=== PATIENT | male | born 2000 | race Hispanic/Latino ===

== ENCOUNTER 2023-11-01 20:32 | Emergency (ER) | payer SELFPAY ==
[2023-11-01 20:34] VITALS: BP 166/88
--- NOTE | 2023-11-01 21:31 | ED.GENMED ---
History of Present Illness
General
Chief Complaint: Heart Rate Problem
Source: patient
Exam Limitations: none
Time Seen by Provider: 11/01/23 21:06
Travel History
Have you had any contact with someone who has COVID-19?: No
Do you have any symptoms of coronavirus? Fever > 100 degrees, chills, cough, shortness of breath, sore throat, loss of taste or smell, muscle aches, or headache?: No
History of Present Illness
History of Present Illness:
This is a 22 year old male that comes in with c/o of his heart racing. States that he was at work and he works on the [employer]. States that his heart just started to race fast. States that he gets cold and then sweats. States that this happened last
week and he went to [facility] in [place]. States that they gave him medication but he didn't take this as he felt it made it worse. State that this fast heart rate happened today at 3pm, 7pm and 8pm. States that it only last about 1 min. States
that he feels SOB and has some chest discomfort. Denies any fever, chills, abd pain, nausea, vomiting, diarrhea, headache, dizziness, urinary burning.
Past History
Past History
ED Past Medical History: None
ED Past Surgical History: None
Social History
Tobacco: Non-smoker
Alcohol: None
Personal:
Living: alone
Employment: Employed
Review of Systems
Review of Systems
All Other Systems: ROS reviewed and negative except as documented in HPI and ROS
Constitutional: Reports no symptoms; Denies fever or chills
EENT: Reports no symptoms
Respiratory: Reports trouble breathing; Denies cough
Cardiac: Reports chest pain (Fast heart rate)
ABD/GI: Reports no symptoms; Denies abdominal pain, nausea, vomiting or diarrhea
: Denies dysuria, frequency or urgency
Musculoskeletal: Reports no symptoms
Skin: Reports no symptoms
Neurological: Reports no symptoms; Denies dizzy or headache
Psychiatric: Reports no symptoms
Phy Exam
General Physical Exam
General Presentation: well appearing and no apparent distress
General age: appears stated age
General Skin: warm
General Habitus: normal
General Mental: alert
General Hydration: appears well hydrated
ENT Exam
ENT Exam: TM's normal, pharynx normal and neck supple
Eye Exam
Eye Exam: EOMI
Cardiovascular Exam
Cardiovascular Exam: regular rate/rhythm, no edema, no murmur and normal peripheral pulses
Pulmonary Exam
Pulmonary Exam: lungs clear, no respiratory distress, no rales, chest non tender, no crackles, no rhonchi, no wheezing and no cough
Gastrointestinal Exam
Gastrointestinal Exam: normal bowel sounds, non tender, soft, no organomegaly, no pulsatile mass and non distended
Musculoskeletal Exam
Musculoskeletal Exam: full ROM and no edema
Skin Exam
Skin Exam: normal color, warm/dry, no rash and no petechia
Psychiatric Exam
Psychiatric Exam: normal mood/affect
Course
Orders/Labs/Results
Orders:
Orders
11/01/23 20:37
Electrocardiogram (*1) Urgent
Reason for Study: Tachycardia
11/01/23 20:38
EKG- Treatment ONCE
11/01/23 21:31
0.9% Sodium Chloride 500 ml [Nss] 500 ml IV BOLUS
11/01/23 21:54
Complete Blood Count/With Diff Urgent
Comprehensive Metabolic Panel Urgent
TSH Reflex To Free T4 Urgent
Troponin I Urgent
Abnormal Lab Results
11/01/23
21:54
WBC 11.6 H 10^3/uL
(4.8-10.8)
MPV 10.6 H fL
(7.4-10.4)
Abs Immat Gran (auto) 0.1 H 10^3/uL
(0-0.05)
Absolute Neuts (auto) 9.5 H 10^3/uL
(1.4-6.5)
Immature Gran % 0.7 H %
(0-0.5)
Neutrophils % 82.1 H %
(42.2-75.2)
Lymphocytes % 12.2 L %
(20.5-51.1)
BUN 25 H mg/dl
(9-20)
Glucose 103 H mg/dl
(70-99)
11/01/23 21:54
11/01/23 21:54
WBC slightly elevated. Dehydration. Glucose nonfasting. Troponin 0012, TSH 0.99
Vital Signs
Initial and Last Documented VS:
Initial Vital Signs
Temp Pulse BP Pulse Ox
97.8 F 88 166/88 98
11/01/23 20:34 11/01/23 20:34 11/01/23 20:34 11/01/23 20:34
Last Documented Vital Signs
Temp Pulse BP Pulse Ox
97.8 F 88 166/88 97
11/01/23 20:34 11/01/23 20:34 11/01/23 20:34 11/01/23 21:55
MDM/Problems Addressed
Differential Diagnosis Includes:
Tachycardia, Dehydration, arrhythmia
MDM/Problems Addressed:
This is a 22 year old male that comes in with c/o his heart beating fast. State that this has happened several times today and only last about 1 min. States that it also happened last week and he was seen in [facility] in [place].
Will check labs and ECG.
Back into see patient. Explained that his heart rate has been regular and around 78. Patient Troponin is normal along with his TSH. Explained that he was dehydrated and encouraged patient to increase his water intake to 8-8oz glasses dally. Patient
to follow up with the family doctor. Return with any concerns
Chronic conditions affecting care:
NA
Acute Exacerbation and/or Progression of Chronic Illness:
NA
*Pulse Oximetry
Patient hypoxic: no
*EKG
Interpreted by ED Provider?: Yes
Heart Rate: 83
Rate: normal
Rhythm: sinus
Mobridge: normal axis
Interval: normal interval
QRS Pattern: normal QRS
Ischemia: no ischemia
*[facility] Interpretation
Rate: normal
Heart Rate: 84
Rhythm: sinus
*Critical Care Note
Total Time (30-74mins, 75-104mins- exclusive of procedures): Not Applicable
ED Attending Note
-
Portions of this chart may have been created with voice recognition software.� Occasional wrong word or��sound alike� substitutions may have occurred due to the inherent limitations of voice recognition software.
Discharge Plan
Departure
Patient Disposition: Home (Routine Discharge)
Date of Disposition: 11/01/23
Time of Disposition: 23:04
Patient with high blood pressure during this ER visit?: Yes
Condition: Good
Covid-19: Not Applicable
Discharge Problem:
Feeling of fast heart rate
Instructions: Tachycardia (DC), BLOOD PRESSURE
Referrals:
NONE,* [Family Provider] -
Activity Restrictions/Additional Instructions:
As discussed, your blood work shows that you are dehydrated. Please increase your water intake to 8-8oz glasses daily. Please stay away from Soda with Caffeine or coffee as this will increase your heart rate. Follow up with the family doctor for
recheck. IF YOU HAVE ANY OTHER CONCERNS PLEASE RETURN TO THE EMERGENCY ROOM.
Interventions
Interventions:
*Risk Screen - Suicide Last Done: 11/01/23 20:34
*General Assessment Last Done: 11/01/23 22:00
*Neglect/Abuse Screening Last Done: 11/01/23 20:34
ED- Fall Risk Assessment Last Done: 11/01/23 21:55
*ED COVID-19 Vaccine History Last Done: 11/01/23 22:00
ED- Cardiac Assessment Last Done: 11/01/23 21:55
ED- Pulmonary Assessment Last Done: 11/01/23 21:55
Discharge Date and Time
Print Language: PORTUGUESE
[2023-11-01] MEDS: NSS 500 IV (21:57)
[2023-11-01 21:59] VITALS: BMI 26.1
[2023-11-01 22:07] LABS: % Basophils 0.5 % (0-2); % Eosinophils 0.7 % (0-6); % Immature Granulocytes 0.7 % (0-0.5); % Lymphocytes 12.2 % (20.5-51.1); % Monocytes 3.8 % (1.7-9.3); % Neutrophils 82.1 % (42.2-75.2); Absolute Basophils 0.1 10^3/uL (0-0.2); Absolute Eosinophils 0.1 10^3/uL (0-0.7); Absolute Immature Granulocytes 0.1 10^3/uL (0-0.05); Absolute Lymphocytes 1.4 10^3/uL (1.2-3.4); Absolute Monocytes 0.4 10^3/uL (0.1-0.6); Absolute Neutrophils 9.5 10^3/uL (1.4-6.5); Hematocrit 40.9 % (39.0-52.0); Hemoglobin 13.6 g/dL (13.0-18.0); Mean Corp Hgb Conc. 33.3 g/dL (33.0-37.0); Mean Corpuscular Hgb 28.2 pg (27.0-31.0); Mean Corpuscular Volume 84.7 fL (80.0-94.0); Mean Platelet Volume 10.6 fL (7.4-10.4); Nucleated Red Blood Cells % 0 % (-); Platelet Count 283 10^3/uL (130-400); Red Blood Cell Count 4.83 10^6/uL (4.70-6.10); Red Cell Dist. Width 11.9 % (11.5-14.5); White Blood Cell Count 11.6 10^3/uL (4.8-10.8)
[2023-11-01 22:25] LABS: ALT (SGPT) 31 U/L (0-50); AST (SGOT) 25 U/L (17-59); Albumin 4.6 g/dl (3.5-5.0); Alkaline Phosphatase 56 U/L (38-126); Blood Urea Nitrogen 25 mg/dl (9-20); Calcium 9.4 mg/dl (8.4-10.2); Carbon Dioxide 24 mmol/L (22-30); Chloride 104 mmol/L (98-107); Estimated Creatinine Clearance > 125 ml/min; Glucose 103 mg/dl (70-99); Sodium 136 mmol/L (135-145); Total Bilirubin 0.4 mg/dl (0.2-1.3); Total Protein 7.2 g/dl (6.3-8.2); eGFR > 60.00
[2023-11-01 22:37] LABS: Troponin I < 0.012 ng/ml
[2023-11-01 22:55] LABS: TSH Reflex To Free T4 0.99 uIU/ml (0.47-4.68)
[2023-11-01 23:07] VITALS: BP 129/82
== END 2023-11-01 23:30 | disposition home or self-care (01) ==
LOC: EMR 20:32
PROVIDERS: Clinical Nurse Specialist Family Health; EMERGENCY PHYSICIAN Emergency Medicine
DX: R00.0 Tachycardia, unspecified (principal); R07.89 Other chest pain; R06.02 Shortness of breath; E86.0 Dehydration; R03.0 Elevated blood-pressure reading, without diagnosis of hypertension
CPT/HCPCS: 99284; 96360; 80053; 84443; 84484; 85025; 93005